=== PATIENT | female | born 1940 | race Caucasian/White ===

== ENCOUNTER → 2018-01-26 | Outpatient (CLI) | payer OTHER ==
[~2018-01-26] VITALS: Ht 160 cm; Wt 80.7 kg
[~2018-01-26] MED LIST: CALCIUM 500 +1 EAC5 PO; CENTRUM SILVER1 EAC4 PO; LASIX 20 MG TAB20 MG PO; PRAVASTATIN SOD80 MG PO; SPIRONOLACTONE25 M1 PO; YUVAFEM10 MCG VAG
--- NOTE | ~2018-01-26 | PATH ---
[facility] [address] [place] [address] PATHOLOGY RPT PROCEDURE Name: CASIMIRO DONATO [id number] Admission: 01/26/18 Date of : 38 Discharge: Report #: [id number] Path Case #: [id number] [facility] Accession Number: [id number] . 01 Material submitted: . POLYP AT CECUM . 01 Clinical history: . Pre-OP DX: Hemoccult positive Post-OP DX: Cecal polyp, diverticulosis . 02 Diagnosis: Polyp, at cecum, endoscopic biopsy: - Tubular adenoma. - Negative for high grade dysplasia. . (IUV:mml; 01/27/18) QLM/01/27/2018 . 02 Electronically signed: . Inge Hung MD, Pathologist NPI- [id number] . 01 Gross description: . Received in formalin labeled "Casimiro Donato, polyp at cecum," are 3 segments of lopez soft tissue measuring 0.6 x 0.5 x 0.1 cm in aggregate dimensions and ranging from 0.2 to 0.3 cm in maximum dimension. The specimen is submitted entirely in cassette A1. (TSD; 01/26/2018) TOB/TOB . 02 Pathologist provided ICD-10: D12.0 . 02 CPT . 657862 Specimen Comment: A courtesy copy of this report has been sent to Specimen Comment: [phone], . Specimen Comment: Report sent to / DR WADDELL Specimen Comment: A duplicate report has been generated due to demographic updates. Performed at: 01 [place] [id number] [id number] MD Wayne Moore MD Phone: [phone] Performed at: 02 [facility] [address] [place] [address] PATHOLOGY RPT PROCEDURE Name: CASIMIRO DONATO [id number] Admission: 01/26/18 Date of : 38 Discharge: Report #: [id number] Path Case #: [id number] [address] [place] [address] [id number] MD Inge Hung MD Phone: [phone]
--- NOTE | ~2018-01-26 | P ---
[facility] [place] [address] PROCEDURE REPORT Name: CASIMIRO DEWITT Room #: REG [facility]#: [id number] Admission: 01/26/18 Attend Phys: Luis Hirsch Discharge: Date of : 38 Report #: [id number] THIS REPORT FOR: //name// CC: Luis Harmon DATE OF SERVICE: 01/26/2018 PROCEDURE PERFORMED: Colonoscopy with biopsies. HISTORY OF PRESENT ILLNESS: The patient is a 77-year-old female who had a routine exam with her primary physician, Dr. Colton Harmon, noted to have a Hemoccult positive stool. The patient denies any obvious bright red blood per rectum or melena. Her last colonoscopy was approximately 8 years ago and reportedly negative. No family history of colon cancer. She denies any history of anemia. She states her bowel movements have been normal. Apparently had an ultrasound of the abdomen that was negative as well. Plan is for colonoscopy. DESCRIPTION OF PROCEDURE: The risks and benefits of the procedure were explained to the patient, those risks including but not limited to bleeding, perforation and the risk of sedation. She understood these risks and gave informed consent. Sedation was given using propofol per Anesthesia. Next, a digital rectal exam was initially performed, which was normal. Next, using a standard Olympus colonoscope, the scope was placed in the patient's anus and advanced under direct vision to the cecum. The overall prep was excellent. In the cecum, there was a 4 mm sessile polyp. This was removed with cold forceps, otherwise normal. The ileocecal valve was normal. Ascending, transverse and descending colon were normal. Multiple diverticula were noted in the sigmoid colon, no evidence of inflammation or bleeding, otherwise normal. The rectal mucosa was normal. On retroflexion, no abnormalities were noted. The scope was then withdrawn and the procedure terminated. The patient tolerated the procedure well. IMPRESSION: 1. Small cecal polyp. 2. Sigmoid diverticulosis. 3. Otherwise, normal colonoscopy. RECOMMENDATIONS: 1. Await biopsy results. 2. No evidence of bleeding on exam today. If the patient is not anemic, would recommend observing at this point. If she has a history of anemia, could consider further workup including EGD or M2 capsule. [address] [address] PROCEDURE REPORT Name: CASIMIRO DEWITT Room #: REG [facility] Ila#: [id number] Admission: 01/26/18 Attend Phys: Luis Hirsch Discharge: Date of : 38 Report #: [id number] Thank you for allowing me to participate in her care. <ELECTRONICALLY SIGNED> By: Luis Muñoz MD 01/28/18 [id number] Luis Muñoz MD /nt
== END | disposition home or self-care (01) ==
LOC: GI 06:30
DX: K57.30 Diverticulosis of large intestine without perforation or abscess without bleeding (principal); D12.0 Benign neoplasm of cecum; E78.5 Hyperlipidemia, unspecified; J45.909 Unspecified asthma, uncomplicated; Z79.899 Other long term (current) drug therapy; Z87.891 Personal history of nicotine dependence; Z95.0 Presence of cardiac pacemaker; Z90.710 Acquired absence of both cervix and uterus; Z98.890 Other specified postprocedural states
CPT/HCPCS: 62110; 62900